=== PATIENT | female | born 1955 | race Caucasian/White ===

== ENCOUNTER 2020-11-14 10:36 | Emergency (ER) | payer MEDICARE, SELFPAY ==
[2020-11-14 10:43] VITALS: BP 141/96; PULSE 106; RESP 16; TEMP 37.1; O2SAT 98
--- NOTE | 2020-11-14 10:45 | ED.URI ---
HPI - URI/Sore Throat General Chief Complaint: Upper Respiratory Infection Stated Complaint: COUGH/TIRED/WEAKNESS/DIARRHEA Time Seen by Provider: 11/14/20 10:45 Source: patient, family, RN notes reviewed and old records reviewed Mode of arrival: ambulatory Limitations: no limitations History of Present Illness HPI Narrative: 65 year old female accompanied by spouse who is also ill with complaints of cough, nausea with some diarrhea and generalized weakness since last Tuesday. Patient states that she has had some nasal drainage also and has been taking Mucinex D for her symptoms. Patient reports that during the night she got up to go to restroom and passed out hitting her chin and right cheek on the wall, only briefly out, did not hit head otherwise and is on no daily anticoagulants, She reports no known exposure to COVID and has not had immunizations. patient denies any fevers, chills or any loss of taste or smell. MD elicited complaint: cough, rhinorrhea and other (nausea with some diarrhea) Pertinent past history: seasonal allergies Related Data Home Medications Medication Instructions Recorded Confirmed hydrochlorothiazide 11/14/20 pantoprazole PO 11/14/20 Allergies Allergy/AdvReac Type Severity Reaction Status Date / Time Cephalosporins Allergy Mild SEVERE Unverified 08/11/12 14:21 DIARRHEA leuprolide Allergy Mild SEVERE Unverified 08/11/12 14:21 MUSCLE BURNING Penicillins Allergy Mild HIVES Unverified 08/11/12 14:21 Review of Systems Review of Systems: CONSTITUTIONAL: Denies fever, chills, or sweats. EYES: Denies visual changes, redness, or discharge. ENT: Positive rhinorrhea, congestion,no sore throat, or otalgia. CARDIOVASCULAR: Denies chest pain, palpitations, or edema. RESPIRATORY: Positive for cough no dyspnea. GASTROINTESTINAL: Denies abdominal pain, nausea, vomiting, positive for diarrhea episodes. GENITOURINARY: Denies dysuria or hematuria. SKIN: Denies rash or itching. MUSCULOSKELETAL: Denies back pain, joint pain, or myalgia. NEUROLOGIC: Denies headache, numbness, positive weakness. PSYCHIATRIC: Denies anxiety or depression. All systems reviewed & are unremarkable except as noted in HPI and below [facility] Past Medical History Medical History (Updated 11/15/20 @ 00:01 by Background Daemon) GERD (gastroesophageal reflux disease) Hiatal hernia Hypertension Seasonal allergies Skin cancer, basal cell Surgical History Surgical History (Updated 11/14/20 @ 11:40 by Abril Holman NP) H/O local excision of skin lesion basal cell from back H/O: hysterectomy Family History Family History (Updated 11/14/20 @ 11:41 by Abril Holman NP) Mother History of kidney cancer Heart disease Father Heart disease Social History Social History (Updated 11/14/20 @ 11:42 by Abril Holman NP) Smoking status: Never smoker Alcohol intake: current Alcohol use details: rare social use Substance use: never Living arrangements: with family Gender identity (if verbalized by the patient): Female Comments At time of signature, agree with nursing past medical, surgical, social and family history. There is no relevant family history pertinent to the presenting complaint Exam Narrative: GENERAL: Well-appearing, well-nourished, and in no acute distress. HEAD: Normocephalic, atraumatic. EYES: PERRLA and EOMI. ENT: Nares red with clear rhinorrhea no epistaxis. Mucous membranes moist.TM's normal with good light reflex, throat pink with no lesions or exudates or tonsil swelling NECK: Supple.no lymphadenopathy CHEST: Clear to auscultation. No respiratory distress.SAO2 98% on room air, some dry cough noted denies any dyspnea HEART: Regular rate and rhythm. No murmur heard. Normal peripheral pulses. ABDOMEN: Soft, nontender, nondistended, normal active bowel sounds.no pain on palpation EXTREMITIES: Normal range of motion. No edema. SKIN: Warm, dry, no rash. abrasion to underside o
== END 2020-11-14 11:45 | disposition home or self-care (01) ==
PROVIDERS: Emergency Provider Registered Nurse; PCP Family Medicine Adolescent Medicine
DX: U07.1 COVID-19 (principal); K21.9 Gastro-esophageal reflux disease without esophagitis; I10 Essential (primary) hypertension; Z85.828 Personal history of other malignant neoplasm of skin
CPT/HCPCS: 87426; 99203; C9803; G0463

== ENCOUNTER 2021-04-17 11:40 | Emergency (ER) | payer MEDICARE, SELFPAY ==
[2021-04-17 11:47] VITALS: BP 141/80; PULSE 96; RESP 16; TEMP 36.2; O2SAT 100
--- NOTE | 2021-04-17 12:08 | ED.URI ---
HPI - URI/Sore Throat General Chief Complaint: Upper Respiratory Infection Stated Complaint: cough and congestion Time Seen by Provider: 04/17/21 12:09 Source: patient and RN notes reviewed Mode of arrival: ambulatory Limitations: no limitations History of Present Illness HPI Narrative: Patient presents today with a 1 week history of cough, nasal congestion. Denies shortness of breath, sore throat, fever, or any additional symptoms. Patient states her symptoms had started to improve, but are now worse again. She has been taking Mucinex D and Flonase with some mild relief. MD elicited complaint: cough and nasal congestion Related Data Home Medications Medication Instructions Recorded Confirmed hydrochlorothiazide 11/14/20 pantoprazole PO 11/14/20 Allergies Allergy/AdvReac Type Severity Reaction Status Date / Time Cephalosporins Allergy Mild SEVERE Unverified 08/11/12 14:21 DIARRHEA leuprolide Allergy Mild SEVERE Unverified 08/11/12 14:21 MUSCLE BURNING Penicillins Allergy Mild HIVES Unverified 08/11/12 14:21 Review of Systems Review of Systems: CONSTITUTIONAL: Denies body aches, fever, chills, or sweats. EYES: Denies visual changes, redness, or discharge. ENT: Denies rhinorrhea, sore throat, or otalgia.+ Congestion CARDIOVASCULAR: Denies chest pain, palpitations, or edema. RESPIRATORY: Denies dyspnea.+ Cough GASTROINTESTINAL: Denies abdominal pain, nausea, vomiting, or diarrhea. GENITOURINARY: Denies dysuria or hematuria. SKIN: Denies rash, itching, or wounds. MUSCULOSKELETAL: Denies back pain, joint pain, or myalgia. NEUROLOGIC: Denies headache, numbness, tingling, or weakness. PSYCH: Denies depression or anxiety. [facility] Past Medical History Medical History GERD (gastroesophageal reflux disease) Hiatal hernia Hypertension Seasonal allergies Skin cancer, basal cell Surgical History Surgical History H/O local excision of skin lesion basal cell from back H/O: hysterectomy Family History Family History Mother History of kidney cancer Heart disease Father Heart disease Social History Social History Smoking status: Never smoker Alcohol intake: current Alcohol use details: rare social use Substance use: never Gender identity (if verbalized by the patient): Female Comments At time of signature, I have reviewed and agree with nursing past medical, surgical, social and family history unless otherwise noted. Please see nursing chart for further information. There is no relevant family history pertinent to the presenting complaint Exam Narrative: GENERAL: Well-appearing, well-nourished, and in no acute distress. HEAD: Normocephalic, atraumatic. EYES: EOMI. No redness or drainage. Conjunctivae normal. ENT: Mucous membranes pink and moist. Nares congested. No rhinorrhea. TMs normal bilaterally. Throat normal. Uvula midline. NECK: Normal AROM. Supple. No lymphadenopathy. CHEST: No respiratory distress. Clear to auscultation. HEART: Regular rate and rhythm. No murmur appreciated. Normal peripheral pulses. EXTREMITIES: Normal range of motion. No edema. SKIN: Warm, dry, no rash. Capillary refill normal. Normal skin turgor. NEURO: No focal deficits. Alert and oriented x3. Gait steady. PSYCH: Normal affect. No signs of depression or anxiety. Course Course Level of Care: Express Care Visit Vital Signs Vital signs: Vital Signs Temperature 97.2 F L 04/17/21 11:47 Pulse Rate 96 04/17/21 11:47 Respiratory Rate 16 04/17/21 11:47 Blood Pressure 141/80 H 04/17/21 11:47 Pulse Oximetry 100 04/17/21 11:47 Temperature 97.2 F L 04/17/21 11:47 Pulse Rate 96 04/17/21 11:47 Respiratory Rate 16 04/17/21 11:47
== END 2021-04-17 12:19 | disposition home or self-care (01) ==
PROVIDERS: Emergency Provider Nurse Practitioner; PCP Family Medicine Adolescent Medicine
DX: J01.90 Acute sinusitis, unspecified (principal); K21.9 Gastro-esophageal reflux disease without esophagitis; I10 Essential (primary) hypertension; Z85.828 Personal history of other malignant neoplasm of skin
CPT/HCPCS: 99213; G0463

== ENCOUNTER 2021-04-20 11:58 | Emergency (ER) | payer MEDICARE, SELFPAY ==
[2021-04-20 12:07] VITALS: BP 138/85; PULSE 88; RESP 16; TEMP 36.4; O2SAT 98
--- NOTE | 2021-04-20 12:20 | ED.GENADULT ---
HPI - General Adult General Chief complaint: Allergic Reaction Stated complaint: Alergic reaction to medication Source: patient Mode of arrival: ambulatory Limitations: no limitations History of Present Illness HPI narrative: 66 y/o female. PMHx GERD, HTN. Presents to [facility] today with acute complaints of medication allergic reaction. Client had been seen at [facility] 04/17/2020 for sinusitis and sinus congestion issues, she had been ultimately started on oral Doxycycline due to a bacterial component concern. Since, she tells me that she had taken her medication as directed, and Tuesday evening, 48 hours ago, she started to notice her lips were swelling. She adds that she 'dug the medication paperwork out of the trash' and noticed that this may be an adverse side effect. Client reports to have stopped the medication that night, has taken no further doses in the past 48 hours. She tells me her symptoms of lip swelling have since spontaneously resolved, she did not seek out medical evaluation until now, today. Denies dyspnea, dysphagia, involuntary drooling. She does however endorse a concern that her sinuses are 'now no better'. She is without additional acute c/o illness upon PE. Related Data Home Medications Medication Instructions Recorded Confirmed hydrochlorothiazide 11/14/20 pantoprazole PO 11/14/20 Allergies Allergy/AdvReac Type Severity Reaction Status Date / Time doxycycline Allergy Intermediate Rash Verified 04/20/21 12:23 Cephalosporins Allergy Mild SEVERE Unverified 04/20/21 12:23 DIARRHEA leuprolide Allergy Mild SEVERE Unverified 04/20/21 12:23 MUSCLE BURNING Penicillins Allergy Mild HIVES Unverified 04/20/21 12:23 Review of Systems Review of Systems: CONSTITUTIONAL: Denies fever, chills, sweats. EYES: Denies visual changes, redness, discharge. ENT: Denies rhinorrhea, congestion, sore throat, otalgia. CARDIOVASCULAR: Denies chest pain, palpitations, edema. RESPIRATORY: Denies dyspnea, wheezing, cough GASTROINTESTINAL: Denies abdominal pain, nausea, vomiting, diarrhea. GENITOURINARY: Denies dysuria, hematuria, abnormal discharge SKIN: Denies rash or itching. MUSCULOSKELETAL: Denies acute back pain, joint pain, or myalgia. NEUROLOGIC: Denies numbness, or focal weakness. PSYCHIATRIC: Denies anxiety or depression. All systems reviewed & are unremarkable except as noted in HPI and below [facility] Past Medical History Medical History GERD (gastroesophageal reflux disease) Hiatal hernia Hypertension Seasonal allergies Skin cancer, basal cell Surgical History Surgical History H/O local excision of skin lesion basal cell from back H/O: hysterectomy Family History Family History Mother History of kidney cancer Heart disease Father Heart disease Social History Social History Smoking status: Never smoker Alcohol intake: current Alcohol use details: rare social use Substance use: never Gender identity (if verbalized by the patient): Female Exam Narrative: GENERAL: This is a well-nourished, well-developed adult, in no apparent distress. HEAD: normocephalic, atraumatic. EYES: PERRL. Sclera clear/white. EARS: External ears normal, auditory canals clear and without drainage, TMs normal. NOSE: External nose normal. no obstruction, nares patent. THROAT: Mucous membranes moist, posterior pharynx clear. No exudates. NECK: Neck supple, non-tender without lymphadenopathy, masses or thyromegaly. CARDIOVASCULAR: Regular rate and rhythm without murmurs, gallops, or rubs. RESPIRATORY: Clear to auscultation. Breath sounds equal bilaterally. No wheezes, rales, or rhonchi. GASTROINTESTINAL: Abdomen soft, non-tender, nondi
== END 2021-04-20 12:27 | disposition home or self-care (01) ==
PROVIDERS: Emergency Provider Nurse Practitioner Adult Health; PCP Family Medicine Adolescent Medicine
DX: R22.0 Localized swelling, mass and lump, head (principal); T36.4X5A Adverse effect of tetracyclines, initial encounter; J01.00 Acute maxillary sinusitis, unspecified; K21.9 Gastro-esophageal reflux disease without esophagitis; I10 Essential (primary) hypertension; Z85.828 Personal history of other malignant neoplasm of skin
CPT/HCPCS: 99213; G0463

== ENCOUNTER → 2021-05-19 01:59 | Outpatient (CLI) | payer MEDICARE, SELFPAY ==
[2021-05-19 17:21] LABS: SARS-CoV-2 RNA PCR Negative
== END ==
PROVIDERS: PCP Family Medicine Adolescent Medicine; Visit Provider Internal Medicine Gastroenterology
DX: Z01.812 Encounter for preprocedural laboratory examination (principal); Z20.822 Contact with and (suspected) exposure to COVID-19
CPT/HCPCS: C9803; U0003; U0005

== ENCOUNTER 2021-05-22 00:52 | Day surgery (SDC) | payer MEDICARE, SELFPAY ==
[2021-05-14 09:47] VITALS: BMI 33.5
--- NOTE | 2021-05-21 09:59 | WPDANESEPPF ---
Anes - Initial Pre Proc Eval Procedure: Operation Date: 05/22/21 09:30 Proposed Procedures p Screening Colonoscopy - Leighton Salazar MD Date/Time: 05/21/21 09:59 Surgeon: Leighton Salazar MD Pre Op Diagnosis: hx of colon polyps Patient Data Age: 66 Gender: F Height: 1.63 m Weight: 88.6 kg Allergies Allergy/AdvReac Type Severity Reaction Status Date / Time doxycycline Allergy Intermediate Rash Verified 05/22/21 08:31 Cephalosporins Allergy Mild SEVERE Verified 05/22/21 08:31 DIARRHEA leuprolide Allergy Mild SEVERE Verified 05/22/21 08:31 MUSCLE BURNING Penicillins Allergy Mild HIVES Verified 05/22/21 08:31 Home Medications Medication Instructions Recorded Confirmed Type hydrochlorothiazide 25 mg PO DAILY 11/14/20 05/22/21 History pantoprazole 40 mg PO DAILY 11/14/20 05/22/21 History Patient hx anesthesia problems: none Family hx anesthesia problems: none Results Review: All pre-operative results and documents have been reviewed as part of the pre-operative evaluation. [facility]LY [facility], [facility] Past Medical History Medical History GERD (gastroesophageal reflux disease) Hiatal hernia Hypertension Seasonal allergies Skin cancer, basal cell Surgical History Surgical History H/O local excision of skin lesion basal cell from back H/O: hysterectomy Family History Family History Mother History of kidney cancer Heart disease Father Heart disease Social History Social History Smoking status: Never smoker Alcohol intake: never Alcohol use details: rare social use Substance use: never Substance use type: does not use Living arrangements: with family Gender identity (if verbalized by the patient): Female Spiritual care concerns: No Anes - Eval Final PreProcedure Day of Procedure 05/21/21 09:59 Patient weight: obese Heart: regular rate and rhythm Lungs: clear to auscultation and normal air movement Airway: Mallampati scale class II Neurological: alert and oriented Last oral intake: >/= 8 hours ASA classification: III Emergent: no Anesthetic plan: proceed Anesthesia type and monitoring: general GIVS and standard monitoring Results Review: All pre-operative results and documents have been reviewed as part of the pre-operative evaluation. Informed Consent: The patient's anesthetic plan and its attendant risks and benefits were discussed with the patient/family/POA. Questions were solicited and answers provided to the satisfaction of the patient/family/POA.
[2021-05-22 08:25] VITALS: BP 142/81; PULSE 88; RESP 18; TEMP 36.8; O2SAT 98; BMI 32.5
--- NOTE | 2021-05-22 08:43 | WPDGICN ---
Assessment and Plan Assessment and plan (1) History of colon polyps: Code(s): Z86.010 - Personal history of colonic polyps Status: Acute Assessment and Plan: Patient has a distant history of adenomatous colon polyp. Plan is for surveillance colonoscopy at this time. No family members reported to have polyps at this time. GI Consult Note Consult date/time: 05/22/21 08:43 HPI: Shilpi Ramirez is a 66 year old female Presents for screening colonoscopy. Patient has a prior history of adenomatous colon polyp removed from the colon 2002. Most recent colonoscopy 2012 revealed several hyperplastic colon polyps. Patient presents today for surveillance colonoscopy. She reports that her weight appetite bowel movements are normal. She denies abdominal pain. She has had no bleeding. She does report occasional hemorrhoidal pain that resolved with conservative therapy and cortisone cream she has not had this pain for quite some time. Review of Systems Review of Systems: All systems reviewed & are unremarkable except as noted in HPI and below PMFSH Past Medical History Medical History GERD (gastroesophageal reflux disease) Hiatal hernia Hypertension Seasonal allergies Skin cancer, basal cell Surgical History Surgical History H/O local excision of skin lesion basal cell from back H/O: hysterectomy Family History Family History Mother History of kidney cancer Heart disease Father Heart disease Social History Social History Smoking status: Never smoker Alcohol intake: never Alcohol use details: rare social use Substance use: never Substance use type: does not use Living arrangements: with family Gender identity (if verbalized by the patient): Female Spiritual care concerns: No Meds Home Medications and Allergies Home Medications Medication Instructions Recorded Confirmed Type hydrochlorothiazide 25 mg PO DAILY 11/14/20 05/22/21 History pantoprazole 40 mg PO DAILY 11/14/20 05/22/21 History Allergies Allergy/AdvReac Type Severity Reaction Status Date / Time doxycycline Allergy Intermediate Rash Verified 05/22/21 08:31 Cephalosporins Allergy Mild SEVERE Verified 05/22/21 08:31 DIARRHEA leuprolide Allergy Mild SEVERE Verified 05/22/21 08:31 MUSCLE BURNING Penicillins Allergy Mild HIVES Verified 05/22/21 08:31 Vital Signs Vital Signs - 24 hr 05/22/21 08:25 Temperature 98.2 F Pulse Rate 88 Respiratory Rate 18 Blood Pressure 142/81 H Pulse Oximetry 98 Exam Narrative: Physical exam reveals patient to be alert. Vital signs stable. HEENT exam is unremarkable. Patient is anicteric. Lungs are clear to auscultation and percussion. Heart is without murmur or extra sounds. Abdominal exam bowel sounds are present soft nontender with no organomegaly. Digital external rectal exam is normal.
[2021-05-22] MEDS: LACTATED RINGERS 1,000 ML 150 ML IV CONT (08:50)
[2021-05-22 09:19] VITALS: BP 122/77; PULSE 85; RESP 23; O2SAT 96
[2021-05-22 09:29] VITALS: BP 121/78; PULSE 77; RESP 19; O2SAT 98
[2021-05-22 09:39] VITALS: BP 127/85; PULSE 67; RESP 16; O2SAT 100
== END 2021-05-22 09:53 | disposition home or self-care (01) ==
PROVIDERS: PCP Family Medicine Adolescent Medicine; Visit Provider Internal Medicine Gastroenterology
PROC: 0DJD8ZZ Inspection of Lower Intestinal Tract, Via Natural or Artificial Opening Endoscopic (ICD-10-PCS; CPT 45378; principal; 2021-05-22 09:30)
DX: Z12.11 Encounter for screening for malignant neoplasm of colon (principal); K64.8 Other hemorrhoids; Z86.010 Personal history of colon polyps; I10 Essential (primary) hypertension; K21.9 Gastro-esophageal reflux disease without esophagitis; E66.9 Obesity, unspecified; Z68.32 Body mass index [BMI] 32.0-32.9, adult
CPT/HCPCS: G0105; J2704; J7120

== ENCOUNTER 2021-07-30 11:14 | Emergency (ER) | payer MEDICARE, SELFPAY ==
--- NOTE | 2021-07-30 11:23 | ED.URI ---
HPI - URI/Sore Throat General Chief Complaint: Upper Respiratory Infection Stated Complaint: Sore throat, headache, eye pain Time Seen by Provider: 07/30/21 11:24 Source: patient and RN notes reviewed History of Present Illness HPI Narrative: Patient is 66-year-old female who presents the urgent care with complaints of sore throat, headache and eye pain. Patient states that started on Tuesday and she has been taking Mucinex D and Tylenol/ibuprofen as needed. Patient denies of any fever, chills, nausea, vomiting, shortness of breath. Patient states she has had an intermittent productive cough but mainly complains of the drainage. Patient states she does have a history of pneumonia and was concerned. Denies of any recent contact with positive COVID or influenza. No other acute complaints. No acute distress noted. Patient aware of the plan of care. Some parts of this dictation were generated by voice recognition software and may contain typographical and/or grammatical inaccuracies. Related Data Home Medications Medication Instructions Recorded Confirmed hydrochlorothiazide 25 mg PO DAILY 11/14/20 07/30/21 pantoprazole 40 mg PO DAILY 11/14/20 07/30/21 Allergies Allergy/AdvReac Type Severity Reaction Status Date / Time doxycycline Allergy Intermediate Rash Verified 07/30/21 11:47 Cephalosporins Allergy Mild SEVERE Verified 07/30/21 11:47 DIARRHEA leuprolide Allergy Mild SEVERE Verified 07/30/21 11:47 MUSCLE BURNING Penicillins Allergy Mild HIVES Verified 07/30/21 11:47 Review of Systems Review of Systems: CONSTITUTIONAL: Denies fever, chills, or sweats. EYES: Denies visual changes, redness, or discharge. Reports of bilateral eye discomfort/sinus pressure ENT: Reports of sore throat, postnasal drainage CARDIOVASCULAR: Denies chest pain, palpitations, or edema. RESPIRATORY: Reports of cough without dyspnea GASTROINTESTINAL: Denies abdominal pain, nausea, vomiting, or diarrhea. GENITOURINARY: Denies dysuria or hematuria. SKIN: Denies rash or itching. MUSCULOSKELETAL: Denies back pain, joint pain, or myalgia. NEUROLOGIC: Denies headache, numbness, or weakness. All other systems reviewed are negative, except as documented in HPI. [facility] Past Medical History Medical History GERD (gastroesophageal reflux disease) Hiatal hernia Hypertension Seasonal allergies Skin cancer, basal cell Surgical History Surgical History H/O local excision of skin lesion basal cell from back H/O: hysterectomy Family History Family History Mother History of kidney cancer Heart disease Father Heart disease Social History Social History Smoking status: Never smoker Alcohol intake: never Alcohol use details: rare social use Substance use: never Substance use type: does not use Gender identity (if verbalized by the patient): Female Spiritual care concerns: No Comments At the time of my signature, I reviewed and agree with the nursing past medical, surgical, social, and family history. There is no relevant family history pertinent to the patient complaint. Exam Narrative: GENERAL: This is a well-nourished, well-developed patient, in no apparent distress. HEAD: normocephalic, atraumatic. Frontal sinus pressure/tenderness EYES: PERRL. Sclera clear/white. Vision is grossly intact. EARS: External ears normal, auditory canals clear and without drainage, TMs normal without perforation. Hearing grossly intact. NOSE: External nose normal with no obvious nasal discharge, nares without redness, no rhinorrhea. THROAT: Mucous membranes moist, posterior pharynx clear. Moderate postnasal drainage NECK: Neck supple, non-tender without lymphadenopathy, masses or thyromegaly. CARDIOVASCULAR: Regular
[2021-07-30 11:48] VITALS: BP 135/89; PULSE 87; RESP 16; TEMP 36.6; O2SAT 98
== END 2021-07-30 12:03 | disposition home or self-care (01) ==
PROVIDERS: Emergency Provider Nurse Practitioner Family; PCP Family Medicine Adolescent Medicine
DX: J32.9 Chronic sinusitis, unspecified (principal); K21.9 Gastro-esophageal reflux disease without esophagitis; I10 Essential (primary) hypertension; Z85.828 Personal history of other malignant neoplasm of skin
CPT/HCPCS: 99213; G0463

== ENCOUNTER 2021-08-10 13:18 | Emergency (ER) | payer MEDICARE, SELFPAY ==
--- NOTE | 2021-08-10 13:27 | ED.URI ---
HPI - URI/Sore Throat General Chief Complaint: Upper Respiratory Infection Stated Complaint: sore throat, loss of taste and smell Time Seen by Provider: 08/10/21 13:27 Source: patient and RN notes reviewed Mode of arrival: ambulatory Limitations: no limitations History of Present Illness HPI Narrative: 66-year-old female presented for complaint of sinus pressure and congestion for over 1 week as well as loss of taste and smell this morning. Patient was seen in [facility] approximately 1 week ago and has taken the prescribed steroid as directed. Endorses productive cough of yellow sputum, headache, throat is raw. Taking Mucinex and Flonase for sx. Denies chest pain, shortness of breath, wheezing, nausea, vomiting, diarrhea, fever or chills. She denies sick contacts. She is not vaccinated for COVID or flu. Related Data Home Medications Medication Instructions Recorded Confirmed hydrochlorothiazide 25 mg PO DAILY 11/14/20 08/10/21 pantoprazole 40 mg PO DAILY 11/14/20 08/10/21 Allergies Allergy/AdvReac Type Severity Reaction Status Date / Time doxycycline Allergy Intermediate Rash Verified 08/10/21 13:32 Cephalosporins Allergy Mild SEVERE Verified 08/10/21 13:32 DIARRHEA leuprolide Allergy Mild SEVERE Verified 08/10/21 13:32 MUSCLE BURNING Penicillins Allergy Mild HIVES Verified 08/10/21 13:32 Review of Systems Review of Systems: CONSTITUTIONAL: Denies malaise, chills, sweats, fever EYES: Denies visual changes, redness, or discharge ENT: Reports rhinorrhea, congestion CARDIOVASCULAR: Denies chest pain, palpitations, edema RESPIRATORY: Reports cough, post nasal drainage. Denies dyspnea GASTROINTESTINAL: Denies abdominal pain, nausea, vomiting, diarrhea SKIN: Denies rash or itching MUSCULOSKELETAL: Denies myalgia NEUROLOGIC: Denies headache PMFSH Past Medical History Medical History GERD (gastroesophageal reflux disease) Hiatal hernia Hypertension Seasonal allergies Skin cancer, basal cell Surgical History Surgical History H/O local excision of skin lesion basal cell from back H/O: hysterectomy Family History Family History Mother History of kidney cancer Heart disease Father Heart disease Social History Social History Smoking status: Never smoker Alcohol intake: never Alcohol use details: rare social use Substance use: never Substance use type: does not use Gender identity (if verbalized by the patient): Female Spiritual care concerns: No Exam Narrative: GENERAL: Ill-appearing HEAD: Normocephalic EYES: conjunctivae clear ENT: Mucous membranes moist. TM pearly champagne with dull light reflex bilaterally; no tragal tenderness. Oropharynx erythematous without lesions or exudate, no drooling, no hoarseness, no trismus, uvula midline. No tripod positioning, muffled voice, soft palate or pharyngeal wall bulging NECK: Supple. No lymphadenopathy CHEST: Clear to auscultation, breath sounds equal. No wheezing, rhonchi, rales, or stridor. HEART: Regular rate and rhythm. No murmur heard. SKIN: Warm, dry, no rash. NEURO: Alert and oriented x3. PSYCH: Normal mood and affect Course Course Emergency Course: Patient is aware of diagnosis, understands and agrees to treatment plan. Anticipatory guidance given. Patient agrees to follow-up as directed and is aware of reasons to seek care at the emergency department. Portions of this record may have been created with voice recognition software Level of Care: Express Care Visit Vital Signs Vital signs: Vital Signs Temperature 97.5 F L 08/10/21 13:34 Pulse Rate 98 08/10/21 13:34 Respiratory Rate 16 08/10/21 13:34 Blood Pressure 150/73 H 08/10/21 13:34 Pulse Oximetry 98 08/10/21 13:34
[2021-08-10 13:34] VITALS: BP 150/73; PULSE 98; RESP 16; TEMP 36.4; O2SAT 98
== END 2021-08-10 13:55 | disposition home or self-care (01) ==
PROVIDERS: Emergency Provider Nurse Practitioner Family; PCP Family Medicine Adolescent Medicine
DX: J06.9 Acute upper respiratory infection, unspecified (principal); Z20.822 Contact with and (suspected) exposure to COVID-19; I10 Essential (primary) hypertension
CPT/HCPCS: 87426; 99213; C9803; G0463

== ENCOUNTER 2022-02-03 11:03 | Emergency (ER) | payer MEDICARE, SELFPAY ==
--- NOTE | 2022-02-03 11:11 | ED.URI ---
HPI - URI/Sore Throat General Chief Complaint: Upper Respiratory Infection Stated Complaint: COUGH/CONGESTION Time Seen by Provider: 02/03/22 11:11 Source: patient and RN notes reviewed Mode of arrival: ambulatory Limitations: no limitations History of Present Illness HPI Narrative: 67 y/o female presents with a productive cough with yellow-green sputum and a sore throat for about one week. Denies any fevers, chills, myalgias, CP, palpitations, SOB, wheezing, N/V/D. Reports cough is worse at night. She has attempted OTC mucinex D with minimal relief. She states that she would like an antibiotic. MD elicited complaint: cough Related Data Allergies Allergy/AdvReac Type Severity Reaction Status Date / Time doxycycline Allergy Intermediate Rash Verified 02/03/22 11:12 Cephalosporins Allergy Mild SEVERE Verified 02/03/22 11:12 DIARRHEA leuprolide Allergy Mild SEVERE Verified 02/03/22 11:12 MUSCLE BURNING Penicillins Allergy Mild HIVES Verified 02/03/22 11:12 Review of Systems Review of Systems: ROS per HPI PMFSH Past Medical History Medical History GERD (gastroesophageal reflux disease) Hiatal hernia Hypertension Seasonal allergies Skin cancer, basal cell Surgical History Surgical History H/O local excision of skin lesion basal cell from back H/O: hysterectomy Family History Family History Mother History of kidney cancer Heart disease Father Heart disease Social History Social History Smoking status: Never smoker Alcohol intake: never Alcohol use details: rare social use Substance use: never Substance use type: does not use Gender identity (if verbalized by the patient): Female Spiritual care concerns: No Exam Narrative: GENERAL: Ill-appearing, nontoxic HEAD: Normocephalic EYES: PERRLA, conjunctivae clear ENT: Mucous membranes moist. TM pearly champagne with light reflex bilaterally; no tragal tenderness. Oropharynx erythematous without lesions or exudate, no drooling, no hoarseness, no trismus, uvula midline. No tripod positioning, muffled voice, soft palate or pharyngeal wall bulging NECK: Supple. No lymphadenopathy CHEST: Clear to auscultation, breath sounds equal. No wheezing, rhonchi, rales, or stridor. HEART: Regular rate and rhythm. No murmur heard. SKIN: Warm, dry, no rash. NEURO: Alert and oriented x3. PSYCH: Normal mood and affect Course Course Emergency Course: Patient is aware of diagnosis, understands and agrees to treatment plan. Anticipatory guidance given. Patient agrees to follow-up as directed and is aware of reasons to seek care at the emergency department. Portions of this record may have been created with voice recognition software Level of Care: Express Care Visit Vital Signs Vital signs: Vital Signs Temperature 98.6 F 02/03/22 11:13 Pulse Rate 104 H 02/03/22 11:13 Respiratory Rate 16 02/03/22 11:13 Blood Pressure 141/105 H 02/03/22 11:13 Pulse Oximetry 98 02/03/22 11:13 Temperature 98.6 F 02/03/22 11:13 Pulse Rate 104 H 02/03/22 11:13 Respiratory Rate 16 02/03/22 11:13 Blood Pressure 141/105 H 02/03/22 11:13 Pulse Oximetry 98 02/03/22 11:13 reviewed MDM - URI/Sore Throat MDM Narrative Medical decision making narrative: Advised supportive measures and signs/symptoms to go to the ER. Pt is appropriate for outpt treatment and f/u. Patient advised that an abx will be prescribed and to start only if s/s do not improve within 2-3 more days. Patient verbalizes understanding and is agreeable to the plan of care. Differential Diagnosis Differential diagnosis: Likely upper respiratory infection, sinusitis and viral infection Discharge Plan Discharge Clinical Impression: Upper respira
[2022-02-03 11:13] VITALS: BP 141/105; PULSE 104; RESP 16; TEMP 37; O2SAT 98
== END 2022-02-03 11:50 | disposition home or self-care (01) ==
PROVIDERS: Emergency Provider Nurse Practitioner Family; PCP Family Medicine Adolescent Medicine
DX: J06.9 Acute upper respiratory infection, unspecified (principal); K21.9 Gastro-esophageal reflux disease without esophagitis; I10 Essential (primary) hypertension; Z85.828 Personal history of other malignant neoplasm of skin
CPT/HCPCS: 99213; G0463

== ENCOUNTER → 2022-12-29 13:28 | Outpatient (CLI) | payer MEDICARE, SELFPAY ==
--- NOTE | ~2022-12-29 | MM_ITS ---
EXAMINATION: MM screening gayatri BI w evan HISTORY: Screening TECHNIQUE: Craniocaudal and mediolateral oblique 3-D tomosynthesis images were obtained and synthetic 2-D images were generated. CAD analysis was submitted and interpreted. COMPARISON: 01/01/2016 BREAST PARENCHYMAL COMPOSITION: The breasts are almost entirely fatty. FINDINGS: There is no evidence of suspicious mass, calcification, or architectural distortion to sugg est malignancy in either breast. There has been no suspicious interval change. IMPRESSION: 1. No mammographic evidence of malignancy. 2. Recommend routine screening mammography in one year. BI-RADS Category 1: Negative Reviewed, dictated and finalized at location A.
== END ==
PROVIDERS: PCP Family Medicine Adolescent Medicine; Visit Provider Physician Assistant
DX: Z12.31 Encounter for screening mammogram for malignant neoplasm of breast (principal)
CPT/HCPCS: 77063; 77067

== ENCOUNTER 2024-08-21 12:10 | Emergency (ER) | payer MEDICARE, SELFPAY ==
--- NOTE | 2024-08-21 12:54 | ED.SKABFB ---
HPI - Skin/Abscess/Foreign Bdy General Chief complaint: Skin/Abscess/Foreign Body Stated complaint: Skin Irritation Time Seen by Provider: 08/21/24 12:40 Source: patient and RN notes reviewed Mode of arrival: ambulatory Limitations: no limitations History of Present Illness HPI narrative: 69-year-old female presents Express Care complaining of multiple bug bites to her right lower leg. She stated she notices over the last few days. Patient [place] patient is unsure if she was bit by a bug. Patient reports having 3 separate bug bites to her right lower leg. Patient states the bug bite near her knee has increased redness and swelling and tenderness. Patient denies any discharge, fevers, body aches, chills, muscle aches. Patient reports there are tics up in this area however she denied seeing any ticks on her body. Patient reports that the bites itch. Related Data Allergies Allergy/AdvReac Type Severity Reaction Status Date / Time doxycycline Allergy Severe angioedema Verified 08/21/24 12:28 Cephalosporins Allergy Mild SEVERE Verified 08/21/24 12:28 DIARRHEA leuprolide Allergy Mild SEVERE Verified 08/21/24 12:28 MUSCLE BURNING Penicillins Allergy Mild HIVES Verified 08/21/24 12:28 Review of Systems Review of Systems: CONSTITUTIONAL: Denies fever, chills, or sweats. EYES: Denies visual changes, redness, or discharge. ENT: Denies rhinorrhea, congestion, sore throat, or otalgia. CARDIOVASCULAR: Denies chest pain, palpitations, or edema. RESPIRATORY: Denies cough or dyspnea. GASTROINTESTINAL: Denies abdominal pain, nausea, vomiting, or diarrhea. GENITOURINARY: Denies dysuria or hematuria. SKIN: Positive for rash and itching. MUSCULOSKELETAL: Denies back pain, joint pain, or myalgia. NEUROLOGIC: Denies headache, numbness, or weakness. PSYCHIATRIC: Denies anxiety or depression. All other systems reviewed are negative, except as documented in HPI. FOR[facility]LY [facility] Past Medical History Medical History GERD (gastroesophageal reflux disease) Skin cancer, basal cell Hiatal hernia Seasonal allergies Hypertension COVID-19 Surgical History Surgical History H/O local excision of skin lesion basal cell from back H/O: hysterectomy Family History Family History Mother History of kidney cancer Heart disease Father Heart disease Social History Social History Smoking status: Never smoker Alcohol intake: never Alcohol use details: rare social use Substance use: never Substance use type: does not use Living arrangements: with family Gender identity (if verbalized by the patient): Female Spiritual care concerns: No Comments At the time of my signature, I reviewed and agree with the nursing past medical, surgical, social, and family history. There is no relevant family history pertinent to the patient complaint. Exam Narrative: GENERAL: This is a well-nourished, well-developed adult, in no apparent distress. They are non ill-appearing, nontoxic appearing. HEAD: normocephalic, atraumatic. EYES: Sclera clear/white. Conjunctiva normal. Vision is grossly intact. Extraocular movements intact EARS: External ears normal, Hearing grossly intact. NOSE: External nose normal THROAT: Mucous membranes moist, NECK: Neck supple, non-tender without lymphadenopathy, masses or thyromegaly. CARDIOVASCULAR: Regular rate and rhythm RESPIRATORY: Respiratory rate normal, respiratory effort nonlabored, no respiratory distress SKIN: Right leg: Maculopapular erythemic, pruritic rash measuring approximately 6 cm x 7 cm with a central puncture wound. Wound is located near the medial distal femur near the knee. No discharge or no central clearing. Area erythema is indurated without fluctuance. Mild tenderness to palpation. Two small macular papular erythemic, pruritic rash located on the lateral upper and lower leg below the knee. One is measuring approximately 1.5 cm x 1 cm in the other 1 is measuring 1 cm x 1 cm. No induration, no area of fluctuance, no central clearing, no tenderness, no discharge. Borders have been marked with a marker. NEURO: awake, alert, and oriented to person, place and time. There were no obvious focal neurologic abnormalities. EXTREMITIES: No joint tenderness, effusion, or edema noted. BACK: Nontender without deformity. No CVA tenderness. Course Course Emergency Course: Portions of this record may have been created with voice recognition software Level of Care: Express Care Visit Vital Signs Vital signs: Reviewed MDM - Skin/Abscess/Foreign Bdy MDM Narrative Medical decision making narrative: Likely allergic reaction from bug bite. No evidence of a tick bite present to patient. Patient having no sick symptoms. Likely 1 of the bug bites has got infected with cellulitis. Patient has multiple drug allergies to antibiotics. Will treat empirically with Bactrim. Discussed physical exam findings. Advised supportive measures and signs/symptoms to go to the ER. Pt is appropriate for outpt treatment and f/u. Differential Diagnosis Differential diagnosis: Likely insect bites, contact dermatitis and other (Cellulitis) Critical Care Time Critical Care Time Critical Care Time: No Discharge Plan Discharge Clinical Impression: Cellulitis Qualifiers: Site of cellulitis: extremity Site of cellulitis of extremity: lower extremity Laterality: right Qualified Code(s): L03.115 - Cellulitis of right lower limb Patient Disposition: Home Condition: Stable Instructions: Antibiotic Form, Cellulitis (ED) Additional Instructions: Clean with soap and water only; Avoid using alcohol and peroxide. Take Zyrtec or Claritin as needed for allergy symptoms. You may take Tylenol and ibuprofen as needed for pain or fevers. Take antibiotic until it's gone. Please schedule a follow up visit with your personal physician for further evaluation and treatment within 3-5days If you develop worsening redness, swelling, discharge, fevers, body aches, muscle aches, or any other concerns please go to the ER immediately. Patient Language: [place] Prescriptions: New sulfamethoxazole-trimethoprim [Bactrim DS] 800-160 mg tablet 1 tablet PO Q12H 7 Days Qty: 14 0RF No Action ipratropium bromide 42 mcg (0.06 %) spray,non-aerosol 2 spray intranasal TID Qty: 15 5RF Rx Instructions: administer into each nostril pantoprazole 40 mg tablet,delayed release (DR/EC) 40 mg PO DAILY Qty: 90 3RF hydrochlorothiazide 25 mg tablet See Rx Instructions .ROUTE .COMPLEX Qty: 90 0RF Dose Instruction: TAKE 1 TABLET BY MOUTH DAILY Rx Instructions: TAKE 1 TABLET BY MOUTH DAILY Follow-up/Referrals: Jey Ye MD [Primary Care Provider] - Time of Disposition: 12:51
== END 2024-08-21 12:54 | disposition home or self-care (01) ==
PROVIDERS: PCP Family Medicine Adolescent Medicine
DX: L03.115 Cellulitis of right lower limb (principal); K21.9 Gastro-esophageal reflux disease without esophagitis; I10 Essential (primary) hypertension; Z85.828 Personal history of other malignant neoplasm of skin
CPT/HCPCS: 99213; G0463